=== PATIENT | male | born 1980 | race Two or more races ===

== ENCOUNTER → 2024-03-10 | Outpatient (CLI) | payer BC, SELFPAY ==
--- NOTE | 2024-03-10 | XR_ITS ---
Examination: Foot, right, 3 views Technique: AP, oblique, lateral views foot, 3 views Date and time of exam: March 10, 2024 0914 hours INDICATIONS: Injury to the foot 1997 with persistent foot pain FINDINGS: Moderate osteoarthritis first metatarsophalangeal joint Moderate osteopenia No acute fracture No dislocation IMPRESSION: Moderate osteoarthritis first metatarsophalangeal joint
--- NOTE | 2024-03-10 | XR_ITS ---
Examination: Lumbar spine, 5 views Technique: Lumbar spine AP, lateral, coned lateral lower lumbar spine, bilateral obliques 5 views Exam date and time: March 10, 2024 0914 hours INDICATIONS: Low back pain several years. FINDINGS: Adequate alignment lumbar vertebral bodies Diffuse [id number] lumbar disc narrowing, most prominent L1-L2, L4-L5 No lumbar fracture IMPRESSION: Diffuse lumbar degenerative disc disease, most prominent L1-L2, L4-L5
--- NOTE | 2024-03-10 | XR_ITS ---
Examination: Knee, left , 3 views Technique: Knee AP, lateral, oblique 3 views Date and time of exam: March 10, 2024 0914 hours INDICATIONS: Left knee pain 2 months, history left meniscus repair 1997 FINDINGS: Mild to moderate narrowing medial joint space Mild osteoarthritis patellofemoral joint No fracture or dislocation IMPRESSION: Mild to moderate narrowing medial joint space
[2024-03-10 09:33] LABS: Basophils # (Auto) 0.1 Thou/mm3 (0.0-0.2); Basophils % (Auto) 2 % (0-2.5); Eosinophils # (Auto) 0.8 Thou/mm3 (0.0-0.5); Eosinophils % (Auto) 12 % (0-10); Hematocrit 47.4 % (41.0-53.0); Hemoglobin 16.1 g/dL (13.5-16.0); Immature Granulocytes % (Auto) 0 % (0-0); Immature Granulocytes Auto 0.02 Thou/mm3 (0.00-0.00); Lymphocytes # (Auto) 2.1 Thou/mm3 (1.0-4.8); Lymphocytes % (Auto) 30 % (10-50); Mean Corpuscular Hemoglobin 28.6 pg (25.0-35.0); Mean Corpuscular Volume 84 fL (80-100); Monocytes # (Auto) 0.5 Thou/mm3 (0.0-0.8); Monocytes % (Auto) 7 % (0-12); Neutrophils # (Auto) 3.3 Thou/mm3 (1.8-7.7); Neutrophils % (Auto) 49 % (37-80); Nucleated Red Blood Cell % 0 /100 WBC (0); Platelet Count 280 Thou/mm3 (140-440); RDW Standard Deviation 40.4 fL (35.1-43.9); Red Blood Count 5.62 Miln/mm3 (4.50-5.90); White Blood Count 6.9 Thou/mm3 (3.8-10.6)
[2024-03-10 09:50] LABS: Glucose Estimated Average 111 mg/dL (80-131); Hemoglobin A1C 5.5 % Hgb (4.8-6.0)
[2024-03-10 09:55] LABS: Alanine Aminotransferase 36 U/L (10-49); Albumin, Serum 4.7 gm/dL (3.5-5.0); Alkaline Phosphatase 82 U/L (46-116); Anion Gap 6 (7-16); Aspartate Amino Transferase 30 U/L (0-34); BUN/Creatinine Ratio 16 Ratio (12-20); Bilirubin,Total 1.4 mg/dL (0.3-1.2); Blood Urea Nitrogen 18 mg/dL (9-23); Calcium 9.7 mg/dL (8.3-10.6); Calcium (Corrected) 9.7 mg/dL (8.5-10.1); Carbon Dioxide 27.9 mMol/L (20.0-31.0); Cardiac Risk Estimate 6.7 RATIO (4.0-6.7); Chloride 105 mMol/L (98-107); Cholesterol 254 mg/dL (132-200); Creatinine (Component) 1.1 mg/dL (0.6-1.3); Globulin 2.4 gm/dL (2.3-3.5); Glucose 98 mg/dL (74-106); HDL Cholesterol 38 mg/dL (40-60); LDL Cholesterol,Calculated 176 mg/dL (0-130); Osmolality,Calculated 279 (275-295); Potassium 4.6 mMol/L (3.4-5.1); Sodium 139 mMol/L (136-145); Thyroid Stimulating Hormone 1.95 uIU/mL (0.55-4.78); Total Protein 7.1 gm/dL (5.7-8.2); Triglycerides 199 mg/dL (30-150); eGFR > 60 See Note
[2024-03-16 06:28] LABS: Albumin 4.1 g/dL (3.6-5.1); SHBG 25 nmol/L (10-50); Testosterone, Bioavailable 109.3 ng/dL (110.0-575.0); Testosterone, Free 58.1 pg/mL (46.0-224.0); Testosterone,Total 351 ng/dL (250-1100)
== END | disposition home or self-care (01) ==
LOC: CDIM 07:36 → COPL 08:49
PROVIDERS: PCP Family Medicine; Referring Provider Nurse Practitioner Family; Visit Provider Radiology Diagnostic Radiology
DX: M25.862 Other specified joint disorders, left knee (principal); M19.071 Primary osteoarthritis, right ankle and foot; M51.369 Other intervertebral disc degeneration, lumbar region without mention of lumbar back pain or lower extremity pain; R53.83 Other fatigue; Z82.49 Family history of ischemic heart disease and other diseases of the circulatory system; Z86.39 Personal history of other endocrine, nutritional and metabolic disease; E29.1 Testicular hypofunction
CPT/HCPCS: 36415; 72110; 73562; 73630; 80053; 80061; 82040; 83036; 84270; 84403; 84443; 85025